=== PATIENT | male | born 1950 | race African-American/Black ===

== ENCOUNTER 2021-10-26 23:25 | Emergency (ER) | payer OTHER ==
[2021-10-26 23:35] VITALS: BMI 23.6
[2021-10-27] MEDS ORDERED: ACETAMINOPHEN 500 MG TABLET (FP) PO ONE (00:17)
[2021-10-27] MEDS ORDERED: ACETAMINOPHEN 325 MG TABLET (FP) ONE (00:34)
[2021-10-27] MEDS ORDERED: DIPHTH,PERTUSS(ACELL),TET 0.5 ML DISP.SYRIN IM ONE ×2 (01:04→01:45)
[2021-10-27 01:37] LABS: BASO % 1.2 % (0-2.0); EOS % 2.6 % (0-4.5); LYMPH % 30.4 % (8-40); MCH 27.8 pg (25.7-33.7); MCHC 33.4 g/dl (32.0-35.9); MEAN CELL VOLUME 83.1 fl (80-96); MEAN PLT VOLUME 7.5 fl (7.5-11.1); MONO % 11.3 % (3.8-10.2); NEUT % 54.5 % (42.8-82.8); PLATELET COUNT 220 10^3/uL (134-434); RBC 4.34 M/mm3 (4.00-5.60); RDW 13.9 % (11.9-15.9); WHITE BLOOD COUNT 4.5 K/mm3 (4.0-10.0)
[2021-10-27 02:02] LABS: ALBUMIN 3.6 g/dl (3.4-5.0); BLOOD UREA NITROGEN 20.2 mg/dL (7-18); CALCIUM 8.4 mg/dL (8.5-10.1)
[2021-10-27 02:05] LABS: CREATININE 0.8 mg/dL (0.55-1.3)
[2021-10-27 02:07] LABS: BILIRUBIN,TOTAL 0.2 mg/dL (0.2-1); TOT PROT 7.6 g/dl (6.4-8.2)
[2021-10-27 04:27] VITALS: BP 119/62; PULSE 58; RESP 16; TEMP 98.4
== END 2021-10-27 04:27 | disposition short-term general hospital (02) ==
LOC: JER 23:25
PROC: 3E0234Z Introduction of Serum, Toxoid and Vaccine into Muscle, Percutaneous Approach (ICD-10-PCS; principal; 2021-10-27)
DX: L03.011 Cellulitis of right finger (principal); M65.841 Other synovitis and tenosynovitis, right hand
CPT/HCPCS: 36415; 73130-TC-RT-FY; 80053; 85025; 85651; 86140; 90471; 90715; 99284-25; C9803-CS; U0003; U0005